=== PATIENT | male | born 1970 | race Caucasian/White ===

== ENCOUNTER 2021-04-03 16:25 | Emergency (ER) | payer OTHER ==
[~2021-04-03] VITALS: Ht 188 cm; Wt 149.7 kg
[~2021-04-03 16:25] MED LIST: NOHOMEMEDICATIONS; PERCOCET 5-3251 EACH PO
[2021-04-03] MEDS ORDERED: METFORMIN HCL500 M3 PO (16:36)
[2021-04-03] MEDS ORDERED: PROTONIX40 M2 PO (16:36)
[2021-04-03] MEDS ORDERED: HYDROCODON-ACE1 EAC7 PO (17:16)
[2021-04-03 17:36] VITALS: BP 127/79
== END 2021-04-03 17:38 | disposition home or self-care (01) ==
LOC: M.ERS 16:25
DX: S83.92XA Sprain of unspecified site of left knee, initial encounter (principal); S90.512A Abrasion, left ankle, initial encounter; S80.811A Abrasion, right lower leg, initial encounter; W10.8XXA Fall (on) (from) other stairs and steps, initial encounter; Y93.89 Activity, other specified; Y92.89 Other specified places as the place of occurrence of the external cause; Y99.8 Other external cause status